=== PATIENT | female | born 1980 | race Caucasian/White ===

== ENCOUNTER 2019-10-15 17:23 | Inpatient (IN) ==
--- NOTE | 2019-10-15 17:39 | DR.H&P ---
H&P - History & Physical for Day of: H&P Date: 10/15/19 - Chief Complaint Chief Complaint: suspected spider bite, cellulitis - History of Present Illness History of Present Illness: The patient is a 38-year-old female that is a direct admit from Dr. Funes's office secondary to cellulitis. Caregiver reports worsening and erythema to the left thigh. Does report purulent drainage. Does question if bite was by a spider. Patient has been treated with IM Rocephin x1 dose alone with Clindamycin 300mg QID. Caregiver does state that they have been soaking the area in warm water with epsom salt. Patient will be admitted to [facility] for further treatment. - Past Medical History Past Medical History: Dyslipidemia Additional Medical History: Bipolar, moderate intellectual disability - Past Surgical History Surgical History: Unknown - Social History Does patient currently use any type of tobacco product: No Have you used tobacco products in the last 12 months: No Type of Tobacco Use: None Does any household member use tobacco: No Alcohol Use: None Drug Use: None - Review of Systems Constitutional: See HPI Eyes: See HPI ENT: See HPI Respiratory: See HPI Cardiovascular: See HPI Gastrointestinal: See HPI Genitourinary: See HPI Skin: Wound Neurological: See HPI Oriented: Normal Eyes: Normal Ear: Normal Nose: Normal Throat: Normal Respiratory: Clear Throughout Cardiovascular: Normal : Normal Auscultation: Bowel Sounds: Normal Palpation: Normal Tenderness: Normal Skin: Red, Wound Musculoskeletal: Normal Psychiatric: Normal Mood Description: Calm, Flat Affect: Flat Speech Pattern: Clear - Assessment/Plan (1) Cellulitis and abscess of left leg Status: Acute Plan: Admit to OPO. IV antibiotics. Consult surgery - Allergies Allergies/Adverse Reactions: Allergies Allergy/AdvReac Type Severity Reaction Status Date / Time No Known Drug Allergies Allergy Unverified 10/15/19 17:36 [NKDA]
[2019-10-15] MEDS ORDERED: ZOFRAN TAB 4 MG PO PRN ×2 (17:40→17:41)
[2019-10-15] MEDS ORDERED: MORPHINE SULFATE INJ 2 MG INJ IVP PRN (17:41)
[2019-10-15] MEDS ORDERED: MOTRIN TAB 600 MG PO PRN (17:41)
[2019-10-15] MEDS ORDERED: PHARMACY CONSULT - VANCOMYCIN XX SCH (18:00)
[2019-10-15 20:04] LABS: BASOPHILS % (AUTO) 0.7 % (0.2-1.0); EOSINOPHILS # (AUTO) 0.1 x10^3/uL (0.0-0.2); EOSINOPHILS % (AUTO) 1.8 % (0.9-2.9); HEMATOCRIT 40.5 % (36.0-47.0); HEMOGLOBIN 13.7 g/dL (12.0-16.0); LYMPHOCYTES # (AUTO) 1.7 X10^3/uL (1.3-2.9); LYMPHOCYTES % (AUTO) 41.5 % (21.0-51.0); MEAN CORPUSCULAR HEMOGLOBIN 32.6 pg (27.0-34.0); MEAN CORPUSCULAR HGB CONC 33.8 g/dL (33.0-35.0); MEAN CORPUSCULAR VOLUME 96.7 fL (80.0-100.0); MEAN PLATELET VOLUME 8.4 fL (7.4-11.0); MONOCYTES # (AUTO) 0.6 x10^3/uL (0.3-0.8); MONOCYTES % (AUTO) 13.4 % (0.0-13.0); NEUTROPHILS # (AUTO) 1.8 x10^3/uL (2.2-4.8); NEUTROPHILS % (AUTO) 42.6 % (42.0-75.0); PLATELET COUNT 195 X10^3/uL (150.0-450.0); RED BLOOD COUNT 4.19 X10^6/uL (3.5-5.4); RED CELL DISTRIBUTION WIDTH 13.5 % (11.6-16.5); WHITE BLOOD COUNT 4.1 X10^3/uL (3.6-10.0)
[2019-10-15 20:22] LABS: ALANINE AMINOTRANSFERASE 23 Units/L (12-78); ALBUMIN 2.6 g/dL (3.4-5.0); ALKALINE PHOSPHATASE 54 Units/L (46-116); ASPARTATE AMINO TRANSFERASE 20 Units/L (15-37); BLOOD UREA NITROGEN 11 mg/dL (7-18); CALCIUM 8.1 mg/dL (8.5-10.1); CARBON DIOXIDE 26.4 mmol/L (21-32); CHLORIDE 99 mmol/L (98-107); COR CA(FOR HYPOALB) 9.2 mg/dL (8.5-10.1); CREATININE 0.85 mg/dL (0.55-1.02); SODIUM 134 mmol/L (136-145); TOTAL PROTEIN 6.5 g/dL (6.4-8.2); eGFR NON BLACK RACES > 60 (>60)
[2019-10-15] MEDS ORDERED: VANCOMYCIN HCL 1 G in D5W 250 ML IV 250 ML IV SCH (21:00)
[2019-10-15] MEDS ORDERED: VANCOMYCIN 1 GRAM PREMIX (ADDVANTAGE) 250 ML IV ONE (22:12)
[2019-10-15] MEDS ORDERED: NS 250 ML IV 250 ML IV ONE (22:14)
[2019-10-15] MEDS ORDERED: VANCOMYCIN HCL ONE (23:37)
[2019-10-15] MEDS ORDERED: NS 100 ML IV 100 ML IV ONE (23:49)
[2019-10-16] MEDS ORDERED: VANCOMYCIN HCL 500 MG in D5W 100 ML IV 100 ML IV ONE ×2
[2019-10-16 06:12] LABS: BASOPHILS % (AUTO) 0.6 % (0.2-1.0); EOSINOPHILS # (AUTO) 0.1 x10^3/uL (0.0-0.2); EOSINOPHILS % (AUTO) 1.6 % (0.9-2.9); HEMATOCRIT 39.2 % (36.0-47.0); HEMOGLOBIN 13.4 g/dL (12.0-16.0); LYMPHOCYTES # (AUTO) 2.1 X10^3/uL (1.3-2.9); LYMPHOCYTES % (AUTO) 49.1 % (21.0-51.0); MEAN CORPUSCULAR HEMOGLOBIN 33.1 pg (27.0-34.0); MEAN CORPUSCULAR HGB CONC 34.1 g/dL (33.0-35.0); MEAN PLATELET VOLUME 9.1 fL (7.4-11.0); MONOCYTES # (AUTO) 0.6 x10^3/uL (0.3-0.8); MONOCYTES % (AUTO) 13.4 % (0.0-13.0); NEUTROPHILS # (AUTO) 1.5 x10^3/uL (2.2-4.8); NEUTROPHILS % (AUTO) 35.3 % (42.0-75.0); PLATELET COUNT 197 X10^3/uL (150.0-450.0); RED BLOOD COUNT 4.04 X10^6/uL (3.5-5.4); RED CELL DISTRIBUTION WIDTH 13.3 % (11.6-16.5); WHITE BLOOD COUNT 4.3 X10^3/uL (3.6-10.0)
[2019-10-16 06:25] LABS: ALANINE AMINOTRANSFERASE 22 Units/L (12-78); ALBUMIN 2.6 g/dL (3.4-5.0); ALKALINE PHOSPHATASE 53 Units/L (46-116); ASPARTATE AMINO TRANSFERASE 21 Units/L (15-37); BLOOD UREA NITROGEN 9 mg/dL (7-18); CALCIUM 8.5 mg/dL (8.5-10.1); CARBON DIOXIDE 24.4 mmol/L (21-32); CHLORIDE 103 mmol/L (98-107); COR CA(FOR HYPOALB) 9.6 mg/dL (8.5-10.1); CREATININE 0.73 mg/dL (0.55-1.02); SODIUM 136 mmol/L (136-145); TOTAL PROTEIN 6.6 g/dL (6.4-8.2); eGFR NON BLACK RACES > 60 (>60)
[2019-10-16 08:54] VITALS: BMI 38.9
[2019-10-16] MEDS: VSL#3 PO SCH (09:03)
[2019-10-16] MEDS: VANCOMYCIN HCL VIAL 1.25 G 1.25 G in D5W 250 ML IV 250 ML IV SCH ×3 (09:03→21:06)
[2019-10-16] MEDS ORDERED: VANCOMYCIN HCL 500 MG, VANCOMYCIN HCL 1 G in D5W 250 ML IV 250 ML IV SCH (10:00)
[2019-10-16] MEDS: MOTRIN TAB 600 MG PO PRN (10:40)
[2019-10-16] MEDS: MAALOX or MYLANTA PO PRN ×2 (11:11→21:05)
[2019-10-16] MEDS ORDERED: DEPAKOTE D.R. TAB PO ONE ×2 (15:01→19:21)
[2019-10-16] MEDS: DEPAKOTE D.R. TAB PO SCH ×2 (15:07→21:05)
[2019-10-16] MEDS: ATIVAN TAB 1 MG PO SCH ×2 (15:12→20:12)
[2019-10-16] MEDS: OSCAL+D or CALTRATE+D PO SCH (19:30)
[2019-10-17] MEDS ORDERED: NS 500 ML IV 500 ML IV PRN (01:47)
[2019-10-17] MEDS: DEPAKOTE D.R. TAB PO SCH ×3 (05:04→21:00)
[2019-10-17] MEDS ORDERED: PHARMACY COMMENT IV NR (05:30)
[2019-10-17 06:03] LABS: BASOPHILS % (AUTO) 0.9 % (0.2-1.0); EOSINOPHILS # (AUTO) 0.1 x10^3/uL (0.0-0.2); EOSINOPHILS % (AUTO) 2.1 % (0.9-2.9); HEMATOCRIT 38.8 % (36.0-47.0); LYMPHOCYTES % (AUTO) 46.4 % (21.0-51.0); MEAN CORPUSCULAR HEMOGLOBIN 32.7 pg (27.0-34.0); MEAN CORPUSCULAR HGB CONC 33.6 g/dL (33.0-35.0); MEAN CORPUSCULAR VOLUME 97.3 fL (80.0-100.0); MEAN PLATELET VOLUME 8.7 fL (7.4-11.0); MONOCYTES # (AUTO) 0.6 x10^3/uL (0.3-0.8); NEUTROPHILS # (AUTO) 1.5 x10^3/uL (2.2-4.8); NEUTROPHILS % (AUTO) 35.6 % (42.0-75.0); PLATELET COUNT 198 X10^3/uL (150.0-450.0); RED BLOOD COUNT 3.99 X10^6/uL (3.5-5.4); RED CELL DISTRIBUTION WIDTH 13.8 % (11.6-16.5); WHITE BLOOD COUNT 4.2 X10^3/uL (3.6-10.0)
[2019-10-17 06:18] LABS: ALANINE AMINOTRANSFERASE 26 Units/L (12-78); ALBUMIN 2.5 g/dL (3.4-5.0); ALKALINE PHOSPHATASE 51 Units/L (46-116); ASPARTATE AMINO TRANSFERASE 21 Units/L (15-37); BLOOD UREA NITROGEN 10 mg/dL (7-18); CALCIUM 8.4 mg/dL (8.5-10.1); CARBON DIOXIDE 25.5 mmol/L (21-32); CHLORIDE 106 mmol/L (98-107); COR CA(FOR HYPOALB) 9.6 mg/dL (8.5-10.1); CREATININE 0.77 mg/dL (0.55-1.02); SODIUM 140 mmol/L (136-145); TOTAL PROTEIN 6.5 g/dL (6.4-8.2); eGFR NON BLACK RACES > 60 (>60)
[2019-10-17 06:35] LABS: CREATININE 0.78 mg/dL (0.55-1.02); VANCOMYCIN,TROUGH 12.1 ug/mL (15-20)
[2019-10-17] MEDS: VANCOMYCIN HCL VIAL 1.25 G 1.25 G in D5W 250 ML IV 250 ML IV SCH ×3 (06:41→20:59)
[2019-10-17] MEDS: ATIVAN TAB 1 MG PO SCH ×3 (07:11→20:51)
[2019-10-17] MEDS: OSCAL+D or CALTRATE+D PO SCH ×2 (07:11→20:51)
[2019-10-17] MEDS ORDERED: NALOXEGOL 25 MG PO SCH (09:00)
[2019-10-17] MEDS ORDERED: WHEAT DEXTRIN PO SCH (09:00)
[2019-10-17] MEDS: TAB-A-VITE PO SCH (09:10)
[2019-10-17] MEDS: PROzac PO SCH ×2 (09:10→09:11)
[2019-10-17] MEDS: NORGESTIMATE ETHINYL ESTRADIOL PO SCH (09:10)
[2019-10-17] MEDS: VSL#3 PO SCH (09:10)
[2019-10-17] MEDS: ZyrTEC TAB 10 MG PO SCH (09:11)
--- NOTE | 2019-10-17 10:09 | RAD ---
HISTORYCoughSTUDYChest PA and lateralCOMPARISONNoneFINDINGSThe heart is within normal limits in size. The luna are normal. The lung vasquez are clear. No pleural effusions are identified. There is a small hiatal hernia present. Bony thorax is unremarkable.IMPRESSIONLungs clearSmall hiatal herniaElectronically signed by: RONNIE NELSON (Oct 17, 2019 10:08:13)
[2019-10-17] MEDS ORDERED: POLYMYXIN B SULFATE ONE (11:39)
[2019-10-17] MEDS ORDERED: XYLOCAINE 1 % (PLAIN) ONE (11:39)
[2019-10-17] MEDS ORDERED: BETADINE SOLN ONE (11:40)
[2019-10-17] MEDS ORDERED: LR 1000 ML IV 1,000 ML IV ONE (11:51)
[2019-10-17] MEDS ORDERED: FENTANYL INJ 100 mcg ONE (12:05)
[2019-10-17] MEDS: FLONASE NASAL SPRAY ENOSTRIL SCH (13:52)
[2019-10-17] MEDS ORDERED: DIPRIVAN VIAL ONE (14:03)
[2019-10-17] MEDS ORDERED: VERSED ONE (14:03)
[2019-10-17] MEDS ORDERED: DEPAKOTE D.R. TAB PO ONE ×2 (14:31→20:04)
[2019-10-17] MEDS ORDERED: NS IRRIGATION 1000 ML ONE (17:32)
[2019-10-17] MEDS: MOTRIN TAB 600 MG PO PRN (21:18)
[2019-10-17] MEDS: MAALOX or MYLANTA PO PRN (23:35)
[2019-10-17] MEDS: CHRONULAC PO PRN (23:39)
[2019-10-18] MEDS ORDERED: DEPAKOTE D.R. TAB PO ONE ×3 (04:34→19:11)
[2019-10-18] MEDS: DEPAKOTE D.R. TAB PO SCH ×3 (05:06→21:21)
[2019-10-18] MEDS: VANCOMYCIN HCL VIAL 1.25 G 1.25 G in D5W 250 ML IV 250 ML IV SCH ×3 (05:07→21:22)
[2019-10-18] MEDS: ATIVAN TAB 1 MG PO SCH ×3 (06:11→20:29)
[2019-10-18] MEDS: OSCAL+D or CALTRATE+D PO SCH ×2 (06:11→20:29)
[2019-10-18 06:24] LABS: BASOPHILS % (AUTO) 0.5 % (0.2-1.0); EOSINOPHILS # (AUTO) 0.1 x10^3/uL (0.0-0.2); EOSINOPHILS % (AUTO) 1.7 % (0.9-2.9); HEMATOCRIT 40.1 % (36.0-47.0); HEMOGLOBIN 13.5 g/dL (12.0-16.0); LYMPHOCYTES # (AUTO) 2.3 X10^3/uL (1.3-2.9); LYMPHOCYTES % (AUTO) 41.8 % (21.0-51.0); MEAN CORPUSCULAR HEMOGLOBIN 32.5 pg (27.0-34.0); MEAN CORPUSCULAR HGB CONC 33.6 g/dL (33.0-35.0); MEAN CORPUSCULAR VOLUME 96.8 fL (80.0-100.0); MEAN PLATELET VOLUME 8.2 fL (7.4-11.0); MONOCYTES # (AUTO) 0.5 x10^3/uL (0.3-0.8); MONOCYTES % (AUTO) 8.4 % (0.0-13.0); NEUTROPHILS # (AUTO) 2.6 x10^3/uL (2.2-4.8); NEUTROPHILS % (AUTO) 47.6 % (42.0-75.0); PLATELET COUNT 222 X10^3/uL (150.0-450.0); RED BLOOD COUNT 4.14 X10^6/uL (3.5-5.4); RED CELL DISTRIBUTION WIDTH 13.5 % (11.6-16.5); WHITE BLOOD COUNT 5.4 X10^3/uL (3.6-10.0)
[2019-10-18 06:39] LABS: ALANINE AMINOTRANSFERASE 27 Units/L (12-78); ALBUMIN 2.7 g/dL (3.4-5.0); ALKALINE PHOSPHATASE 58 Units/L (46-116); ASPARTATE AMINO TRANSFERASE 21 Units/L (15-37); BLOOD UREA NITROGEN 9 mg/dL (7-18); CALCIUM 8.3 mg/dL (8.5-10.1); CHLORIDE 103 mmol/L (98-107); COR CA(FOR HYPOALB) 9.3 mg/dL (8.5-10.1); CREATININE 0.74 mg/dL (0.55-1.02); SODIUM 137 mmol/L (136-145); TOTAL PROTEIN 6.8 g/dL (6.4-8.2); eGFR NON BLACK RACES > 60 (>60)
[2019-10-18] MEDS ORDERED: POTASSIUM CHL 40 MEQ/NS 0.45% 500 ML IV PRN (07:19)
[2019-10-18] MEDS ORDERED: MICRO K EXTEN CAP 10 MEQ PO PRN (07:19)
[2019-10-18] MEDS ORDERED: POTASSIUM CHL 60 MEQ/NS 0.45% 500 ML IV PRN (07:19)
[2019-10-18] MEDS ORDERED: K-DUR TAB 20 MEQ PO PRN (07:19)
[2019-10-18] MEDS ORDERED: K-RIDER 10 MEQ/NS 100 ML 10 MEQ/100 ML BAG IV PRN (07:19)
[2019-10-18] MEDS ORDERED: KLOR-CON PO PRN (07:19)
[2019-10-18] MEDS ORDERED: POTASSIUM CHLORIDE LIQ 20 MEQ UDC PO PRN (07:19)
[2019-10-18] MEDS: FLONASE NASAL SPRAY ENOSTRIL SCH (08:29)
[2019-10-18] MEDS: TAB-A-VITE PO SCH (08:30)
[2019-10-18] MEDS: ZyrTEC TAB 10 MG PO SCH (08:30)
[2019-10-18] MEDS: PROzac PO SCH ×2 (08:30)
[2019-10-18] MEDS: VSL#3 PO SCH (08:30)
[2019-10-18] MEDS: NORGESTIMATE ETHINYL ESTRADIOL PO SCH (08:30)
[2019-10-18] MEDS: MAALOX or MYLANTA PO PRN ×2 (10:30→23:40)
[2019-10-18 13:58] LABS: CREATININE 0.83 mg/dL (0.55-1.02); VANCOMYCIN,TROUGH 13.3 ug/mL (15-20)
[2019-10-18] MEDS ORDERED: CHLORASEPTIC SPRAY MT PRN (14:14)
[2019-10-18] MEDS ORDERED: CHLORASEPTIC SPRAY MT ONE (14:22)
[2019-10-19] MEDS ORDERED: DEPAKOTE D.R. TAB PO ONE ×3 (04:26→19:04)
[2019-10-19] MEDS: MAALOX or MYLANTA PO PRN ×2 (05:02→20:05)
[2019-10-19] MEDS: VANCOMYCIN HCL VIAL 1.25 G 1.25 G in D5W 250 ML IV 250 ML IV SCH ×3 (05:02→21:00)
[2019-10-19] MEDS: DEPAKOTE D.R. TAB PO SCH ×3 (05:03→21:01)
[2019-10-19] MEDS: CHRONULAC PO PRN ×3 (05:03→20:07)
[2019-10-19] MEDS: MOTRIN TAB 600 MG PO PRN ×2 (05:20→21:01)
[2019-10-19] MEDS: OSCAL+D or CALTRATE+D PO SCH ×2 (06:01→20:06)
[2019-10-19] MEDS: ATIVAN TAB 1 MG PO SCH ×3 (06:02→20:06)
[2019-10-19 06:28] LABS: BASOPHILS % (AUTO) 0.7 % (0.2-1.0); EOSINOPHILS # (AUTO) 0.1 x10^3/uL (0.0-0.2); HEMATOCRIT 38.5 % (36.0-47.0); LYMPHOCYTES # (AUTO) 2.1 X10^3/uL (1.3-2.9); LYMPHOCYTES % (AUTO) 45.7 % (21.0-51.0); MEAN CORPUSCULAR HEMOGLOBIN 33.1 pg (27.0-34.0); MEAN CORPUSCULAR HGB CONC 33.8 g/dL (33.0-35.0); MEAN CORPUSCULAR VOLUME 97.8 fL (80.0-100.0); MEAN PLATELET VOLUME 8.7 fL (7.4-11.0); MONOCYTES # (AUTO) 0.5 x10^3/uL (0.3-0.8); MONOCYTES % (AUTO) 11.7 % (0.0-13.0); NEUTROPHILS # (AUTO) 1.8 x10^3/uL (2.2-4.8); NEUTROPHILS % (AUTO) 39.9 % (42.0-75.0); PLATELET COUNT 212 X10^3/uL (150.0-450.0); RED BLOOD COUNT 3.94 X10^6/uL (3.5-5.4); RED CELL DISTRIBUTION WIDTH 13.6 % (11.6-16.5); WHITE BLOOD COUNT 4.5 X10^3/uL (3.6-10.0)
[2019-10-19 06:33] LABS: ALANINE AMINOTRANSFERASE 24 Units/L (12-78); ALBUMIN 2.6 g/dL (3.4-5.0); ALKALINE PHOSPHATASE 55 Units/L (46-116); ASPARTATE AMINO TRANSFERASE 16 Units/L (15-37); BLOOD UREA NITROGEN 9 mg/dL (7-18); CALCIUM 8.4 mg/dL (8.5-10.1); CARBON DIOXIDE 26.9 mmol/L (21-32); CHLORIDE 105 mmol/L (98-107); COR CA(FOR HYPOALB) 9.5 mg/dL (8.5-10.1); COR NA(FOR HYPERGLY) 141 mmol/L (136-145); CREATININE 0.93 mg/dL (0.55-1.02); SODIUM 140 mmol/L (136-145); TOTAL PROTEIN 6.5 g/dL (6.4-8.2); eGFR NON BLACK RACES > 60 (>60)
[2019-10-19] MEDS: PROzac PO SCH ×2 (08:55)
[2019-10-19] MEDS: TAB-A-VITE PO SCH (08:55)
[2019-10-19] MEDS: FLONASE NASAL SPRAY ENOSTRIL SCH (08:56)
[2019-10-19] MEDS: ZyrTEC TAB 10 MG PO SCH (08:56)
[2019-10-19] MEDS: VSL#3 PO SCH (08:57)
[2019-10-19] MEDS: NORGESTIMATE ETHINYL ESTRADIOL PO SCH (09:01)
--- NOTE | 2019-10-19 11:42 | PCM.PROG ---
Progress Note - Progress Note for Day of Date of Exam: 10/18/19 - Subjective Subjective: IS A 38 YEAR OLD PATIENT OF . SHE IS BEING TREATED FOR LEFT UPPER THIGH WOUND AND CELLULITIS. WOUND WAS DEBRIDED IN THE OR BY . TODAY, SHE IS ALERT AND ORIENTED, SITTING UP IN BED ON MORNING ROUNDS. SHE CONTINUES WITH PAIN AND REDNESS TO THE LEFT THIGH. THERE IS A DRESSING NOTED TO SITE WITH ONLY MINIMAL DRAINAGE TODAY. HER VITALS THIS MORNING ARE: 99.0-83-20-97%-116/58. LABS WERE OBTAINED. ABNORMAL LAB VALUES INCLUDE THE FOLLOWING: CALCIUM 8.3, ALBUMIN 2.7. BLOOD CULTURES ARE PENDING. WOUND CULTURE REVEALS GROWTH OF MRSA. SHE IS CURRENTLY RECEIVING VANCOMYCIN 1.25G IV Q8H, THE POTASSIUM AND MAGNESIUM PROTOCOLS, MOTRIN 600MG PO TID PRN, MORPHINE 1-2MG IV Q3H PRN, ZOFRAN 4MG PO Q8H PRN, AND HER HOME MEDICATIONS WERE RESUMED. WE WILL CONTINUE WITH CURRENT PLAN OF CARE TODAY. IS MONITORING WOUND. OTHERWISE, WE WILL FOLLOW UP WITH AM LABS AND CONTINUE TO MONITOR. - Past Medical Family Social History Past Med/Fam/Surg Hx: No changes since H&P Allergies: Allergies No Known Drug Allergies [NKDA] Allergy (Unverified 10/15/19 17:36) - Review of Systems ROS: No change since H&P - Vital Signs and I&O's Vital Signs: Temperature 97.7 F Pulse Rate [Right Brachial] 80 Pulse Rate 65 Respiratory Rate 20 Blood Pressure [Right Arm] 113/55 Blood Pressure 115/68 O2 Sat by Pulse Oximetry 97 Intake and Output: Intake & Output 10/16/19 10/17/19 10/18/19 10/19/19 11:59 11:59 11:59 11:59 Intake Total 890 / 890 1360 / 1360 3520 / 3520 2870 / 2870 Output Total 200 / 200 Balance 890 / 890 1360 / 1360 3320 / 3320 2870 / 2870 - Physical Exam Oriented: Normal Eyes: Normal Ear: Normal Nose: Normal Throat: Normal Respiratory: Diminished Cardiovascular: Normal : Normal Auscultation: Bowel Sounds: Normal Palpation: Normal Tenderness: Normal Skin: Red, Tender, Wound Musculoskeletal: Normal Psychiatric: Normal Mood Description: Calm, Flat Affect: Flat Speech Pattern: Clear, Appropriate - Laboratory and Diagnostics Result Diagrams: 10/19/19 05:47 10/19/19 05:47 Labs: 10/17/19 12:20 Leg - Left Gram Stain - Final 10/17/19 12:20 Leg - Left Wound Culture - Preliminary 10/15/19 19:30 Blood Blood Culture - Preliminary 10/15/19 19:35 Blood Blood Culture - Preliminary 10/15/19 20:23 Thigh - Left Gram Stain - Final 10/15/19 20:23 Thigh - Left Wound Culture - Final Methicillin Resis Staph Aureus Laboratory WBC 4.5 X10^3/uL (3.6-10.0) 10/19/19 05:47 RBC 3.94 X10^6/uL (3.5-5.4) 10/19/19 05:47 Hgb 13.0 g/dL (12.0-16.0) 10/19/19 05:47 Hct 38.5 % (36.0-47.0) 10/19/19 05:47 MCV 97.8 fL (80.0-100.0) 10/19/19 05:47 MCH 33.1 pg (27.0-34.0) 10/19/19 05:47 MCHC 33.8 g/dL (33.0-35.0) 10/19/19 05:47 RDW 13.6 % (11.6-16.5) 10/19/19 05:47 Plt Count 212 X10^3/uL (150.0-450.0) 10/19/19 05:47 MPV 8.7 fL (7.4-11.0) 10/19/19 05:47 Neut % (Auto) 39.9 % (42.0-75.0) L 10/19/19 05:47 Lymph % (Auto) 45.7 % (21.0-51.0) 10/19/19 05:47 [place] % (Auto) 11.7 % (0.0-13.0) 10/19/19 05:47 Eos % (Auto) 2.0 % (0.9-2.9) 10/19/19 05:47 Baso % (Auto) 0.7 % (0.2-1.0) 10/19/19 05:47 Neut # (Auto) 1.8 x10^3/uL (2.2-4.8) L 10/19/19 05:47 Lymph # (Auto) 2.1 X10^3/uL (1.3-2.9) 10/19/19 05:47 [place] # (Auto) 0.5 x10^3/uL (0.3-0.8) 10/19/19 05:47 Eos # (Auto) 0.1 x10^3/uL (0.0-0.2) 10/19/19 05:47 Baso # (Auto) 0.0 X10^3/uL (0.0-0.1) 10/19/19 05:47 Absolute Nucleated RBC 0.0 /100WBC 10/19/19 05:47 Sodium 140 mmol/L (136-145) 10/19/19 05:47 Corrected Sodium 141 mmol/L (136-145) 10/19/19 05:47 Potassium 3.5 mmol/L (3.5-5.1) 10/19/19 05:47 Chloride 105 mmol/L (98-107) 10/19/19 05:47 Carbon Dioxide 26.9 mmol/L (21-32) 10/19/19 05:47 BUN 9 mg/dL (7-18) 10/19/19 05:47 Creatinine 0.93 mg/dL (0.55-1.02) 10/19/19 05:47 Est GFR (MDRD) Af Amer > 60 (>60) 10/19/19 05:47 Est GFR (MDRD) Non-Af > 60 (>60) 10/19/19 05:47 Glucose 126 mg/dL (65-99) H 10/19/19 05:47 Calcium 8.4 mg/dL (8.5-10.1) L 10/19/19 05:47 Corrected Calcium 9.5 mg/dL (8.5-10.1) 10/19/19 05:47 Total Bilirubin 0.20 mg/dL (0.2-1.0) 10/19/19 05:47 AST 16 Units/L (15-37) 10/19/19 05:47 ALT 24 Units/L (12-78) 10/19/19 05:47 Alkaline Phosphatase 55 Units/L (46-116) 10/19/19 05:47 Total Protein 6.5 g/dL (6.4-8.2) 10/19/19 05:47 Albumin 2.6 g/dL (3.4-5.0) L 10/19/19 05:47 Globulin 3.9 g/dL (2.5-4.5) 10/19/19 05:47 Albumin/Globulin Ratio 0.7 Ratio (1.1-2.1) L 10/19/19 05:47 Vancomycin Trough 13.3 ug/mL (15-20) L 10/18/19 13:30 Tissue Pathology To follow 10/17/19 12:20 - Plan (1) Cellulitis and abscess of left leg Status: Acute Plan: VANCOMYCIN 1.25G IV Q8H, WOUND CARE, CONTINUE TO MONITOR
[2019-10-20] MEDS ORDERED: DEPAKOTE D.R. TAB PO ONE ×2 (03:52→14:15)
[2019-10-20] MEDS: DEPAKOTE D.R. TAB PO SCH ×2 (05:13→14:38)
[2019-10-20] MEDS: VANCOMYCIN HCL VIAL 1.25 G 1.25 G in D5W 250 ML IV 250 ML IV SCH ×2 (05:14→14:39)
[2019-10-20] MEDS: MOTRIN TAB 600 MG PO PRN (05:22)
[2019-10-20] MEDS: ATIVAN TAB 1 MG PO SCH ×2 (06:04→15:12)
[2019-10-20] MEDS: OSCAL+D or CALTRATE+D PO SCH (06:05)
[2019-10-20 06:41] LABS: BASOPHILS % (AUTO) 0.8 % (0.2-1.0); EOSINOPHILS # (AUTO) 0.1 x10^3/uL (0.0-0.2); EOSINOPHILS % (AUTO) 2.7 % (0.9-2.9); HEMATOCRIT 38.1 % (36.0-47.0); HEMOGLOBIN 12.9 g/dL (12.0-16.0); LYMPHOCYTES # (AUTO) 2.4 X10^3/uL (1.3-2.9); LYMPHOCYTES % (AUTO) 47.3 % (21.0-51.0); MEAN CORPUSCULAR HEMOGLOBIN 32.7 pg (27.0-34.0); MEAN CORPUSCULAR HGB CONC 33.8 g/dL (33.0-35.0); MEAN CORPUSCULAR VOLUME 96.8 fL (80.0-100.0); MEAN PLATELET VOLUME 8.4 fL (7.4-11.0); MONOCYTES # (AUTO) 0.7 x10^3/uL (0.3-0.8); MONOCYTES % (AUTO) 13.4 % (0.0-13.0); NEUTROPHILS # (AUTO) 1.8 x10^3/uL (2.2-4.8); NEUTROPHILS % (AUTO) 35.8 % (42.0-75.0); PLATELET COUNT 223 X10^3/uL (150.0-450.0); RED BLOOD COUNT 3.93 X10^6/uL (3.5-5.4); RED CELL DISTRIBUTION WIDTH 13.6 % (11.6-16.5)
[2019-10-20 06:44] LABS: ALANINE AMINOTRANSFERASE 25 Units/L (12-78); ALBUMIN 2.7 g/dL (3.4-5.0); ALKALINE PHOSPHATASE 55 Units/L (46-116); ASPARTATE AMINO TRANSFERASE 17 Units/L (15-37); BLOOD UREA NITROGEN 9 mg/dL (7-18); CALCIUM 8.5 mg/dL (8.5-10.1); CARBON DIOXIDE 26.8 mmol/L (21-32); CHLORIDE 103 mmol/L (98-107); COR CA(FOR HYPOALB) 9.5 mg/dL (8.5-10.1); CREATININE 0.74 mg/dL (0.55-1.02); SODIUM 137 mmol/L (136-145); TOTAL PROTEIN 6.8 g/dL (6.4-8.2); eGFR NON BLACK RACES > 60 (>60)
[2019-10-20] MEDS: TAB-A-VITE PO SCH (08:39)
[2019-10-20] MEDS: PROzac PO SCH ×2 (08:39)
[2019-10-20] MEDS: ZyrTEC TAB 10 MG PO SCH (08:39)
[2019-10-20] MEDS: FLONASE NASAL SPRAY ENOSTRIL SCH (08:40)
[2019-10-20] MEDS: VSL#3 PO SCH (08:41)
[2019-10-20] MEDS: NORGESTIMATE ETHINYL ESTRADIOL PO SCH (08:41)
--- NOTE | 2019-10-20 14:26 | DR.PROGNOT ---
Hospital Progress Notes - Progress Note for Day of: Progress Note Date: 10/20/19 - Chief Complaint Chief Complaint: packing Lt thigh wound was removed and dressing was applied . no significant cellulitis . the wound is deep to the muscles . no cellulitis or necrosis . - Past Medical Family Social History Past Med/Fam/Surg Hx: No changes since H&P Allergies: Allergies No Known Drug Allergies [NKDA] Allergy (Unverified 10/15/19 17:36) - Review Of Systems ROS: No change since H&P - Vital Signs Vital Signs: Temperature 98.9 F Pulse Rate [Right Brachial] 73 Pulse Rate 65 Respiratory Rate 18 Blood Pressure [Right Arm] 123/70 Blood Pressure 115/68 O2 Sat by Pulse Oximetry 93 - Physical Exam Oriented: Normal Eyes: Normal Ear: Normal Nose: Normal Throat: Normal Respiratory: Diminished Cardiovascular: Normal : Normal GI:Auscultation: Normal GI:Palpation: Normal GI: Tenderness: Normal Skin: Red, Tender, Wound (4x2 cm deep to the muscles , no necrosis . minimal cellulitis .) Musculoskeletal: Normal Psychiatric: Normal Mood Description: Calm, Flat Affect: Flat Speech Pattern: Clear, Appropriate - Laboratory and Diagnostics Result Diagrams: 10/20/19 05:20 10/20/19 05:20 Labs: 10/17/19 12:20 Leg - Left Gram Stain - Final 10/17/19 12:20 Leg - Left Wound Culture - Final Methicillin Resis Staph Aureus 10/15/19 19:30 Blood Blood Culture - Preliminary 10/15/19 19:35 Blood Blood Culture - Preliminary 10/15/19 20:23 Thigh - Left Gram Stain - Final 10/15/19 20:23 Thigh - Left Wound Culture - Final Methicillin Resis Staph Aureus Laboratory WBC 5.0 X10^3/uL (3.6-10.0) 10/20/19 05:20 RBC 3.93 X10^6/uL (3.5-5.4) 10/20/19 05:20 Hgb 12.9 g/dL (12.0-16.0) 10/20/19 05:20 Hct 38.1 % (36.0-47.0) 10/20/19 05:20 MCV 96.8 fL (80.0-100.0) 10/20/19 05:20 MCH 32.7 pg (27.0-34.0) 10/20/19 05:20 MCHC 33.8 g/dL (33.0-35.0) 10/20/19 05:20 RDW 13.6 % (11.6-16.5) 10/20/19 05:20 Plt Count 223 X10^3/uL (150.0-450.0) 10/20/19 05:20 MPV 8.4 fL (7.4-11.0) 10/20/19 05:20 Neut % (Auto) 35.8 % (42.0-75.0) L 10/20/19 05:20 Lymph % (Auto) 47.3 % (21.0-51.0) 10/20/19 05:20 [place] % (Auto) 13.4 % (0.0-13.0) H 10/20/19 05:20 Eos % (Auto) 2.7 % (0.9-2.9) 10/20/19 05:20 Baso % (Auto) 0.8 % (0.2-1.0) 10/20/19 05:20 Neut # (Auto) 1.8 x10^3/uL (2.2-4.8) L 10/20/19 05:20 Lymph # (Auto) 2.4 X10^3/uL (1.3-2.9) 10/20/19 05:20 [place] # (Auto) 0.7 x10^3/uL (0.3-0.8) 10/20/19 05:20 Eos # (Auto) 0.1 x10^3/uL (0.0-0.2) 10/20/19 05:20 Baso # (Auto) 0.0 X10^3/uL (0.0-0.1) 10/20/19 05:20 Absolute Nucleated RBC 0.0 /100WBC 10/20/19 05:20 Sodium 137 mmol/L (136-145) 10/20/19 05:20 Corrected Sodium TNP 10/20/19 05:20 Potassium 4.0 mmol/L (3.5-5.1) 10/20/19 05:20 Chloride 103 mmol/L (98-107) 10/20/19 05:20 Carbon Dioxide 26.8 mmol/L (21-32) 10/20/19 05:20 BUN 9 mg/dL (7-18) 10/20/19 05:20 Creatinine 0.74 mg/dL (0.55-1.02) 10/20/19 05:20 Est GFR (MDRD) Af Amer > 60 (>60) 10/20/19 05:20 Est GFR (MDRD) Non-Af > 60 (>60) 10/20/19 05:20 Glucose 73 mg/dL (65-99) 10/20/19 05:20 Calcium 8.5 mg/dL (8.5-10.1) 10/20/19 05:20 Corrected Calcium 9.5 mg/dL (8.5-10.1) 10/20/19 05:20 Total Bilirubin 0.30 mg/dL (0.2-1.0) 10/20/19 05:20 AST 17 Units/L (15-37) 10/20/19 05:20 ALT 25 Units/L (12-78) 10/20/19 05:20 Alkaline Phosphatase 55 Units/L (46-116) 10/20/19 05:20 Total Protein 6.8 g/dL (6.4-8.2) 10/20/19 05:20 Albumin 2.7 g/dL (3.4-5.0) L 10/20/19 05:20 Globulin 4.1 g/dL (2.5-4.5) 10/20/19 05:20 Albumin/Globulin Ratio 0.7 Ratio (1.1-2.1) L 10/20/19 05:20 Vancomycin Trough 13.3 ug/mL (15-20) L 10/18/19 13:30 Random Vancomycin 16.3 ug/mL 10/19/19 19:15 Tissue Pathology To follow 10/17/19 12:20 - Assessment and Plan 1: infected wound Lt thigh , s/p debridement . MRSA infection. to change dressing daily . clean with H2O2 and Saline . redress with 4x4 . OOB ambulatory. CLIONDAMYCIN 300 MG Q 6 HOURS. to follow in the office in 10 days
[2019-10-20 16:05] VITALS: BP 120/68
== END 2019-10-20 16:20 | disposition home or self-care (01) | DRG 572 ==
LOC: MED/SURG 18:41
PROVIDERS: ADMIT Internal Medicine; ATTEND Internal Medicine
CPT/HCPCS: 36415; 71020; 71046; 80053; 80202; 82565; 85025; 87040; 87070; 87075; 87077; 87186; 87205; A4216; A4222; J2250; J2704; J3010; J3370; J7040; J7050; J7060; J7120